=== PATIENT | male | born 1970 | race Caucasian/White ===

== ENCOUNTER 2018-05-25 05:56 | Observation (INO) | payer BC ==
--- NOTE | 2018-05-24 18:11 | GHP ---
[f rep st] PREOP HISTORY AND PHYSICAL DATE OF ADMISSION: 05/25/2018 PROBLEM: Right hip arthritis. HISTORY OF PRESENT ILLNESS: The patient is a 48 year old man admitted for a right hip [place] hip resurfacing arthroplasty. Over the last 3 or 4 years, he has had progressive pain and stiffness in his right hip. The hip feels unstable. His range of motion is very limited. He is aware of clicking. He has been limping. He forces himself to remain active, and he has just put up with the increasing pain. Outpatient evaluation shows very severe degenerative arthritis in his right hip. He is admitted for a right hip [place] hip resurfacing arthroplasty. He has tried physical therapy in the past without much benefit. He has not had any cortisone injections. PAST MEDICAL HISTORY: Excellent general health. No history of heart disease, stents, DVT, hepatitis, MRSA staph infections, sleep apnea, or bleeding problems. He does not take aspirin regularly. CURRENT MEDICATIONS: None. ALLERGIES: Drug allergies: None. Metal allergy: None. Latex allergy: None. SOCIAL HISTORY: The patient does not smoke cigarettes or drink alcohol. 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 He is . FAMILY HISTORY: Positive for arthritis, hypertension, and cancer. PHYSICAL EXAMINATION: GENERAL: He is a healthy fit-appearing man. VITAL SIGNS : Height 6 feet 2 inches. Weight 180 pounds. BMI 23.1. EYES: Conjunctivae and sclerae are clear. Pupils are round and reactive. MOUTH: Good oral hygiene. No loose teeth. CHEST: Clear. HEART: Regular rhythm. No murmurs. EXTREMITIES: Pertinent findings are limited to his right hip. He has a 10 degree hip flexion contracture and further flexion to 60 degrees. As he flexes the hip, he has a 20-degree external rotation contracture and no further internal or external rotation. Abduction 20 degrees. He has well-developed thigh musculature. IMAGING: X-rays show very severe degenerative arthritis of the right hip. He is bone on bone. Extensive osteophyte formation is present. He has some mild degenerative changes in his left hip. IMPRESSION ON ADMISSION: Right hip severe degenerative arthritis. PLAN: He will undergo a right hip [place] hip resurfacing arthroplasty. The surgery has been described to him and to his , including the risks, complications, expectations, and recovery time. I have discussed with him the risk of femoral neck fracture, dislocation, infection, and sciatic nerve injury. He understands that he is very young for any type of hip arthroplasty and will probably require revision surgery in the future. I have discussed with him in detail the potential risk of elevated metal ions in the blood and in the soft tissues around the hip joint. All his questions have been answered , and he consents to surgery. Copy requested to: ASHLYN Perkins /[id number]/MODL MTDD
[2018-05-25] MEDS ORDERED: ROPIVACAINE 0.2% 80 MG, EPINEPHrine 0.2 MG, KETOROLAC TROMETHAMINE 30 MG in SYRINGE 0 ML IU ONE (06:00)
[2018-05-25] MEDS ORDERED: TRANEXAMIC ACID 1,000 MG in NS 100 ML IV ONE (06:00)
[2018-05-25] MEDS ORDERED: POVIDONE-IODINE 20 ML in SODIUM CL IRRIG SOLUTION 500 ML IRR ONE (06:00)
[2018-05-25] MEDS ORDERED: TRANEXAMIC ACID 3,000 MG in NS (SYRINGE) 50 ML IRR ONE (06:00)
[2018-05-25] MEDS ORDERED: ceFAZolin 2 GM/DEXTROSE 100 ML IV ONE (06:08)
[2018-05-25] MEDS ORDERED: FAMOTIDINE 20 MG TAB PO ONE (06:08)
[2018-05-25] MEDS ORDERED: ACETAMINOPHEN 325 MG TAB PO ONE (06:08)
[2018-05-25] MEDS ORDERED: GABAPENTIN 300 MG CAP PO ONE (06:08)
[2018-05-25] MEDS ORDERED: DEXAMETHASONE 4 MG/ML VIAL IVP ONE (06:08)
[2018-05-25] MEDS ORDERED: ONDANSETRON 4 MG/2 ML VIAL IVP ONE (06:08)
[2018-05-25] MEDS ORDERED: LR 1,000 ML IV ONE (06:09)
[2018-05-25] MEDS ORDERED: TRANEXAMIC ACID 3,000 MG/50 ML BAG IRR ONE (06:37)
[2018-05-25] MEDS ORDERED: ceFAZolin 1 GM/5 ML SYR ONE (06:37)
[2018-05-25] MEDS ORDERED: MIDAZOLAM 2 MG/2 ML VIAL IVP ONE (06:58)
--- NOTE | 2018-05-25 06:58 | PDANEPAE ---
ANE History of Present Illness L hip pain, here for BHAVANI ANE Past Medical History - Cardiovascular History Hx Hypertension: No Hx Arrhythmias: No Hx Chest Pain: No Hx Coronary Artery / Peripheral Vascular Disease: No Hx CHF / Valvular Disease: No Hx Palpitations: No - Pulmonary History Hx COPD: No Hx Asthma/Reactive Airway Disease: No Hx Recent Upper Respiratory Infection: No Hx Oxygen in Use at Home: No Hx Sleep Apnea: No Sleep Apnea Screening Result - Last Documented: Negative - Neurologic History Hx Cerebrovascular Accident: No Hx Seizures: No Hx Dementia: No - Endocrine History Hx Diabetes: No - Renal History Hx Renal Disorders: No - Liver History Hx Hepatic Disorders: No - Neurological & Psychiatric Hx Hx Neurological and Psychiatric Disorders: No - Cancer History Hx Cancer: No - Congenital Disorder History Hx Congenital Disorders: No - GI History Hx Gastrointestinal Disorders: No - Other Health History Other Health History: eczema on feet - Chronic Pain History Chronic Pain: Yes (right hip) - Surgical History Prior Surgeries: wisdom teeth removed ANE Review of Systems Review of Systems: - Exercise capacity METS (RN): 4 METS ANE Patient History - Allergies Allergies/Adverse Reactions: No Known Allergies Allergy (Verified 05/12/18 10:33) - Home Medications Home Medications: Acetaminophen [Tylenol 325mg (*)] 325 mg PO DAILY PRN 05/05/18 [Last Taken 1 Week Ago ~05/18/18] - NPO status NPO Since - Liquids (Date): 05/25/18 NPO Since - Liquids (Time): 03:45 NPO Since - Solids (Date): 05/24/18 NPO Since - Solids (Time): 21:00 - Smoking Hx Smoking Status: Never smoked - Family Anes Hx Family Hx Anesthesia Complications: none ANE Labs/Vital Signs - Vital Signs Blood Pressure: 127/80 Heart Rate: 70 Respiratory Rate: 16 O2 Sat (%): 98 Height: 187.96 cm Weight: 83.915 kg ANE Physical Exam - Airway Neck exam: FROM Mallampati Score: Class 2 Mouth exam: normal dental/mouth exam - Pulmonary Pulmonary: no respiratory distress, no rales or rhonchi - Cardiovascular Cardiovascular: no murmur, rub, or gallop - ASA Status ASA Status: II ANE Anesthesia Plan Anesthesia Plan: general endotracheal anesthesia, GA with mask Total IV Anesthesia: Yes
--- NOTE | 2018-05-25 06:58 | PDHPUP ---
History & Physical Update H&P update statement: This history and physical update is based on an assessment of the patient which was completed after admission or registration (within 24 hours), but prior to the surgery/procedure. H&P update: H&P reviewed & patient examined
[2018-05-25] MEDS ORDERED: MIDAZOLAM 2 MG/2 ML VIAL ONE (07:00)
[2018-05-25] MEDS ORDERED: fentaNYL 100 MCG/2 ML INJ ONE ×2 (07:01→09:56)
[2018-05-25] MEDS ORDERED: BUPIVACAINE/DEXTROSE 7.5MG/ML 2 ML SPINAL AMP SP ONE (07:01)
[2018-05-25] MEDS ORDERED: LIDOCAINE 2% 100 MG/5 ML SYR ONE (07:01)
[2018-05-25] MEDS ORDERED: PROPOFOL/EMULSION 500 MG/50 ML BOTTLE IV ONE ×2 (07:02→07:53)
[2018-05-25] MEDS ORDERED: PHENYLEPHRINE HCL 100 MCG/ML SYR ONE (08:32)
[2018-05-25] MEDS ORDERED: ACETAMINOPHEN 500 MG TAB PO PRN (08:44)
[2018-05-25] MEDS ORDERED: MEPERIDINE 25 MG/0.5 ML AMP IVP PRN (08:44)
[2018-05-25] MEDS ORDERED: LR 500 ML IV PRN (08:44)
[2018-05-25] MEDS ORDERED: DIAZEPAM 5 MG/ML 1 ML SYR IVP PRN (08:44)
[2018-05-25] MEDS ORDERED: HYDROmorphONE/DILAUDID 2 MG/ML INJ IVP PRN (08:44)
[2018-05-25] MEDS ORDERED: oxyCODONE IR 5 MG TAB PO PRN ×2 (08:44→09:35)
[2018-05-25] MEDS ORDERED: NALOXONE HCL 0.4 MG/ML INJ IVP PRN (08:44)
[2018-05-25] MEDS ORDERED: fentaNYL 100 MCG/2 ML INJ IVP PRN (08:44)
[2018-05-25] MEDS ORDERED: PROPOFOL 200 MG/20 ML VIAL ONE (08:53)
[2018-05-25] MEDS ORDERED: PROMETHAZINE HCL 25 MG/ML INJ IVP PRN (09:35)
[2018-05-25] MEDS ORDERED: TEMAZEPAM 15 MG CAP PO PRN (09:35)
[2018-05-25] MEDS ORDERED: NS 500 ML IV PRN (09:35)
[2018-05-25] MEDS ORDERED: diphenhydrAMINE 25 MG CAP PO PRN (09:35)
[2018-05-25] MEDS ORDERED: MAGNESIUM HYDROXIDE 30 ML UDCUP PO PRN (09:35)
[2018-05-25] MEDS ORDERED: ONDANSETRON 4 MG/2 ML VIAL IVP PRN (09:35)
[2018-05-25] MEDS ORDERED: traMADol 50 MG TAB PO PRN (09:35)
[2018-05-25] MEDS ORDERED: POLYETHYLENE GLYCOL 3350 17 GM PKT PO PRN (09:35)
[2018-05-25] MEDS ORDERED: DIPHENOXYLATE/ATROPINE LOMOTIL 1 TAB PO PRN (09:35)
[2018-05-25] MEDS ORDERED: BISACODYL 10 MG SUPP PR PRN (09:35)
[2018-05-25] MEDS ORDERED: LACTULOSE 20 GM/30 ML UDCUP PO PRN (09:35)
[2018-05-25] MEDS ORDERED: CYCLOBENZAPRINE 10 MG TAB PO PRN (09:35)
[2018-05-25] MEDS ORDERED: PROMETHAZINE HCL 25 MG SUPPR PR PRN (09:35)
[2018-05-25] MEDS ORDERED: METOCLOPRAMIDE 10 MG/2 ML VIAL IVP PRN (09:35)
[2018-05-25] MEDS ORDERED: ONDANSETRON DISINTEGRATING 4 MG TAB PO PRN (09:35)
--- NOTE | 2018-05-25 09:47 | POSTANESTH ---
Post Anesthetic Evaluation Cardiovascular Status: Normal, Stable Respiratory Status: Normal, Stable Level of Consciousness/Mental Status: Can Participate in Eval, Mildly Sleepy, Arousable Pain Control: Adequate, Prn Tx Ordered Nausea/Vomiting Control: Adequate, Prn Tx Ordered Complications Possibly Related to Anesthesia: None Noted
[2018-05-25] MEDS ORDERED: HYDROmorphONE/DILAUDID 2 MG/ML INJ ONE (09:57)
[2018-05-25] MEDS ORDERED: LR 1,000 ML IV SCH (10:00)
--- NOTE | 2018-05-25 10:43 | GOP ---
[f rep st] OPERATIVE REPORT DATE OF OPERATION: 05/25/2018 SURGEON: Kenn Snowden MD ADULT SERVICES LIBRARIAN: Julián Barth, PARK MAINTENANCE TECHNICIAN and Bony Yoo, PAC. ANESTHESIA: A combination of Marcaine spinal and IV sedation. ANESTHESIOLOGIST: Roosevelt Quezada DO PREOPERATIVE DIAGNOSIS: Right hip severe degenerative arthritis. POSTOPERATIVE DIAGNOSIS: Right hip severe degenerative arthritis. PROCEDURE PERFORMED: Right hip [place] hip resurfacing arthroplasty. FINDINGS: DESCRIPTION OF PROCEDURE: The patient was given 2 g of IV Ancef preoperatively within 60 minutes of surgery. He also received 1000 mg of IV tranexamic acid preoperatively. He was placed on the operat ing room table and given spinal anesthesia with Marcaine by Dr. Quezada. He was then placed supine and given IV sedation. A Villegas catheter was not used. He wore a compressive stocking and SCD on the no noperative leg. He was rolled to the left lateral decubitus position. An axillary roll was used and all pressure points were carefully padded. His position was secured with the pegboard table attachm ent. I was careful to lock his pelvis in a vertical position. His perineum was isolated with plasti c adhesive drapes. The right hip and right lower extremity were prepped with ChloraPrep. They were draped free using sterile sheets, stockinette, and Ioban plastic drape. The [employer] time-out was performed to verify the correct patient identity and the c orrect surgical side and site. The [place] time-out was also performed. I made a 7 inch straight oblique posterolateral hip skin incision. The subcutaneous tissues were sha rply divided and hemostasis was obtained using electrocautery. His fascia vianca was identified and sp lit along the axis of its fibers. I then curved posteriorly and proximally, and split the fascia of gluteus esme and bluntly split the muscle fibers in line with their orientation. His sciatic nerv e was located and protected throughout the procedure. The [place]arnley self-retaining retractor was inse rted. The external rotators and the posterior hip capsule were divided as separate layers at the bas e of the femoral neck, tagged and reflected posteriorly. The gluteus esme tendon was divided and tagged in order to improve exposure and release tension on the sciatic nerve. The hip was dislocated posteriorly. I used a sizing gauge to check the diameter of the neck. He had a lot of osteophytes and thickening around the neck, which made it a bit difficult to determine the proper head size. I had to expose the neck a little more thoroughly and removed some bony prominence s. At that point I concluded that 52 mm was the proper head size. I performed a circumferential cap sulotomy. I was able to retract the femoral head anteriorly and superiorly, and then hold it out of place with appropriate retractors. The minimal remnant of his labrum was excised. He had a very lar ge peripheral osteophytes around the acetabulum. There was very little labrum left. His acetabulum was reamed sequentially up to 58 mm. I selected the [place] monoblock porous-coated acetabular co mponent with an outside diameter of 58 mm. This was firmly impacted and was a very tight fit. I was careful to determine proper inclination and anteversion. He had large osteophytes around the acetab ulum, which I trimmed with an osteotome and rongeur. I was careful to leave a small lip of bone exte nding beyond the anterior-inferior lip of the metal cup. I then returned to preparation of the femoral head. Using appropriate jigs and guides, I inserted a guide pin into the femoral head and neck. I was careful to position it in such a way that there woul d be no notching of the neck. The large sterile metal goniometer was used to check the neck shaft an gle. I reamed over the guide pin and inserted the reaming guide. I then used a cylindrical reamer d own to the head and neck junction. This was followed by the flat reamer and the chamfer reamer. He had some large soft anterior neck osteophytes, which I trimmed with a rongeur. His head was sized fo r 52 mm. There was no impingement or damage to the neck. Quality of the bone in the femoral head wa s excellent. I drilled a small hole in the lesser trochanter and inserted the suction cannula to cre ate negative pressure in the medullary canal. Small holes were drilled on the flattened chamfer surf aces of the prepared head for cement anchors. The head was thoroughly cleaned with the pulsating lav age and carefully dried. I used a CarboJet device to blow dry the cancellous surfaces. A single bat ch of Simplex cement with tobramycin was mixed. At about 50 seconds, I poured the liquid cement into the head component, inserted it onto the femoral head, and impacted it into place. Excess cement wa s removed before it hardened. The acetabulum was irrigated, cleaned, and inspected, and the hip was reduced. Stability and range o f motion were checked. I placed my finger along the anterior aspect of the acetabular component and flexed the hip to 110 degrees. There was no anterior impingement. The suction cannula on the lesser trochanter was removed. The wound was thoroughly irrigated with a dilute Betadine solution. 40 cc of the joint anesthetic cocktail were injected into the capsule, deep musculature, and subcutaneous t issues along the skin edges. 50 cc of tranexamic acid were irrigated into the wound. His sciatic nerve was reinspected and looked unharmed. The external rotators and the posterior hip c apsule were repaired in separate layers with #2 FiberWire sutures through drill holes in the greater trochanter. The gluteus esme tendon was repaired with 2 ayydie-kd-solic #2 FiberWire sutures. Th e fascia vianca was closed first with 2 interrupted kdflqi-ae-ptyke #2 FiberWire sutures, followed by a running #2 barbed Ethicon Stratafix PDO suture. Subcutaneous tissues were closed with a running 0 b arbed Ethicon Stratafix Monoderm suture. The skin was closed with running 3-0 barbed Ethicon Strataf ix Monoderm subcuticular suture. The skin edges were reapproximated and sealed with Dermabond glue. The wound was covered with a large sterile Mepilex waterproof dressing. A sacral Mepilex dressing w as also applied. The estimated blood loss was between 400 and 500 cc. I used a [employer] Johnathan hip resurfacing system. The acetabular component was 58 mm in d iameter and press-fit. The femoral head was 52 mm and cemented. A long-leg LIBRADO stocking and SCD were applied to the operative leg. He wore a stocking and SCD on the opposite leg during the procedure. An abduction pillow was placed between his knees. He was awaken ed from anesthesia and rolled to the supine position on his [facility]. He was taken to PACU in satisfactory condition. There were no recognized intraoperative complications. The sponge and needle count were correct on 2 occasions. Alex Yoo and Julián Barth acted as surgical assistants. Their assistance was a medical necess ity for safe completion of the procedure. Copy requested to: ASHLYN Dean. /[id number]/MODL
[2018-05-25] MEDS ORDERED: ACETAMINOPHEN 325 MG TAB PO SCH (12:00)
[2018-05-25] MEDS ORDERED: KETOROLAC 15 MG/1 ML SDV IVP SCH (12:00)
--- NOTE | 2018-05-25 12:58 | GDS ---
[f rep st] DISCHARGE SUMMARY ADMISSION DIAGNOSIS: Right hip severe degenerative arthritis. DISCHARGE DIAGNOSIS: Right hip severe degenerative arthritis. OPERATION PERFORMED: On 05/25/2018, a right hip [place] hip resurfacing arthroplasty. POSTOPERATIVE COMPLICATIONS: None. CONDITION ON DISCHARGE: Improved. DESCRIPTION OF HOSPITAL COURSE: The patient was admitted to the hospital the morning of surgery. Hi s admission CBC was normal. The same day, under a combination of Marcaine, spinal, and IV sedation, he underwent a right hip [place] hip resurfacing arthroplasty. Postoperatively, he was treated wi multimodal DVT prophylaxis. On the day of surgery, he was seen by Physical Therapy and made satis factory progress with ambulation and stairs. Later in the day, he was discharged. DISPOSITION: The patient is discharged and staying in a local hotel. I will see him back in the off ice on 05/28/2018. He may progress to full weightbearing as tolerated on the right. Use asp irin 325 mg p.o. daily for 21 days. Use an abduction pillow in bed for 3 weeks. LIBRADO stockings for 1 week. He has prescriptions for oxycodone, tramadol, and Celebrex for pain control. If there are an y problems, he is to call me at the office. Copy requested to: ASHLYN Perkins /[id number]/MOLINA
[2018-05-25] MEDS ORDERED: ceFAZolin 2 GM/DEXTROSE 100 ML IV SCH (14:00)
[2018-05-25 14:34] VITALS: BP 105/62
[2018-05-25] MEDS ORDERED: ASPIRIN 325 MG TAB PO SCH (21:00)
[2018-05-25] MEDS ORDERED: SENNOSIDES/DOCUSATE SODIUM TAB PO SCH (21:00)
[2018-05-25] MEDS ORDERED: FAMOTIDINE 20 MG TAB PO SCH (21:00)
[2018-05-26] MEDS ORDERED: FERROUS SULFATE 325 MG TAB PO SCH (08:00)
== END 2018-05-25 17:10 | disposition home or self-care (01) ==
LOC: F3N 05:56 → EDSTATUS 07:30 → F3N 11:35
PROVIDERS: ADMIT Orthopaedic Surgery; ATTEND Orthopaedic Surgery
PROC: 0SR9019 Replacement of Right Hip Joint with Metal Synthetic Substitute, Cemented, Open Approach (ICD-10-PCS; principal; 2018-05-25 07:15)
DX: M16.11 Unilateral primary osteoarthritis, right hip (principal); M25.751 Osteophyte, right hip; I10 Essential (primary) hypertension
CPT/HCPCS: 27130; 72170; 97116; 97161; 97165; 97535; G0378; C1713; J0171; J0690; J1100; J1170; J1885; J2001; J2250; J2370; J2405; J2704; J2795; J3010